=== PATIENT | female | born 2000 | race Hispanic/Latino ===

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

== ENCOUNTER 2023-08-15 13:09 | Emergency (ER) | payer MEDICAID, OTHER ==
[~2023-08-15] VITALS: Ht 154.9 cm; Wt 65.8 kg
[~2023-08-15 13:09] MED LIST changes: +FERR-82 PO; +PREN1TAB80 PO
[2023-08-15] MEDS: ONDANSETRON ODT 4MG TAB SL ONE (13:41)
[2023-08-15 13:44] LABS: HCG,QUALITATIVE URINE NEGATIVE (NEGATIVE)
[2023-08-15 13:45] LABS: ADD UA MICROSCOPIC YES
[2023-08-15 13:46] LABS: APPEARANCE,URINE CLOUDY (CLEAR); BACTERIA,URINE RARE /HPF (None Seen); BILIRUBIN,URINE NEGATIVE (NEGATIVE); COLOR,URINE YELLOW (YELLOW); GLUCOSE, URINE (UA) NEGATIVE (NEGATIVE); KETONES,URINE NEGATIVE (NEGATIVE); LEUKOCYTE ESTERASE ,URINE 250 Leu/uL (NEGATIVE); MUCUS,URINE MANY LPF (None Seen); NITRATE,URINE NEGATIVE (NEGATIVE); NON-SQUAMOUS EPITHELIAL CELL 2 /HPF (0-2); OCCULT BLOOD,URINE MODERATE (NEGATIVE); PH,URINE 8.5 (5.0-8.0); PROTEIN,URINE 70 mg/dL (NEGATIVE); RBC,URINE TNTC /HPF (0-1); SQUAMOUS EPITHELIAL CELL,UR MANY /HPF (0-2); UROBILINOGEN,URINE 6 mg/dL (0.2-1.0)
[2023-08-15 13:49] LABS: AMPHET/METH SCREEN,URINE NEGATIVE (NEGATIVE); BARBITURATE SCREEN, URINE NEGATIVE (NEGATIVE); BENZODIAZEPINES SCREEN,URINE NEGATIVE (NEGATIVE); CANNABINOID SCREEN,URINE POSITIVE (NEGATIVE); COCAINE SCREEN,URINE NEGATIVE (NEGATIVE); OPIATE SCREEN,URINE NEGATIVE (NEGATIVE); PHENCYCLIDINE SCREEN,URINE NEGATIVE (NEGATIVE)
[2023-08-15] MEDS ORDERED: ONDA4TAB10 PO (14:12)
[2023-08-15] MEDS ORDERED: NITR100C PO (14:12)
[2023-08-15 14:13] VITALS: BP 112/64; PULSE 84; RESP 18; O2SAT 99
== END 2023-08-15 14:36 | disposition home or self-care (01) ==
LOC: EDH 13:09
DX: F12.90 Cannabis use, unspecified, uncomplicated (principal); N30.01 Acute cystitis with hematuria; R11.0 Nausea; J45.909 Unspecified asthma, uncomplicated; Z79.1 Long term (current) use of non-steroidal anti-inflammatories (NSAID); Z20.822 Contact with and (suspected) exposure to COVID-19
CPT/HCPCS: 80305; 81001; 81025; 87088; 87426

== ENCOUNTER 2023-10-26 19:07 | Emergency (ER) | payer OTHER ==
[~2023-10-26] VITALS: Ht 147.3 cm; Wt 52.2 kg
[~2023-10-26 19:07] MED LIST changes: +NITR100C PO; +ONDA-243 PO
[2023-10-26 19:54] LABS: SARS-CoV-2, RNA, NAAT NEGATIVE SARS CoV-2 (NEGATIVE)
[2023-10-26 20:00] LABS: RAPID GROUP A STREP positive (NEGATIVE)
[2023-10-26 20:01] LABS: INFLUENZA TYPE A Negative For Type A (NEGATIVE); INFLUENZA TYPE B Negative For Type B (NEGATIVE)
[2023-10-26 20:08] VITALS: TEMP 103.6
[2023-10-26] MEDS: CEFTRIAXONE 1G VIAL IVPB ONE (20:08)
[2023-10-26] MEDS: ONDANSETRON ODT 4MG TAB SL ONE (20:08)
[2023-10-26] MEDS: 0.9%NACL 1000ML 1,000 ML IV ONE ×2 (20:08→22:29)
[2023-10-26] MEDS: ACETAMINOPHEN 500 MG TABLET PO ONE (20:08)
[2023-10-26 20:37] LABS: BASOPHILS # (AUTO) 0.07 K/uL (0.00-0.20); BASOPHILS % (AUTO) 0.4 % (0.0-5.0); EOSINOPHILS # (AUTO) 0.01 K/uL (0.00-0.70); EOSINOPHILS % (AUTO) 0.1 % (0.0-8.0); IMMATURE GRANULOCYTE ABSOLUTE 0.08 K/uL (0-1); LYMPHOCYTES # (AUTO) 1.3 K/uL (1.0-4.8); MEAN CORPUSCULAR HEMOGLOBIN 23.2 pg (27.0-33.0); MEAN CORPUSCULAR HGB CONC 31.5 g/dL (32.0-36.0); MEAN CORPUSCULAR VOLUME 73.6 fL (80-100); MONOCYTES # (AUTO) 0.7 K/uL (0.1-1.0); MONOCYTES % (AUTO) 3.6 % (3.0-13.0); NEUTROPHILS # (AUTO) 16.7 K/uL (1.8-7.7); NEUTROPHILS % (AUTO) 88.5 % (40.0-77.0); PLATELET COUNT (AUTO) 386 K/uL (130-400); RED BLOOD CELL COUNT(AUTO) 4.62 MIL/uL (4.00-5.50); RED CELL DISTRIBUTION WIDTH 16.1 % (11.0-15.5); WHITE BLOOD COUNT (AUTO) 18.8 K/uL (4.8-10.8)
[2023-10-26 20:40] LABS: APPEARANCE,URINE CLEAR (CLEAR); BILIRUBIN,URINE NEGATIVE (NEGATIVE); COLOR,URINE YELLOW (YELLOW); GLUCOSE, URINE (UA) NEGATIVE (NEGATIVE); KETONES,URINE NEGATIVE (NEGATIVE); LEUKOCYTE ESTERASE ,URINE TRACE Leu/uL (NEGATIVE); NITRATE,URINE NEGATIVE (NEGATIVE); OCCULT BLOOD,URINE NEGATIVE (NEGATIVE); PROTEIN,URINE NEGATIVE (NEGATIVE)
[2023-10-26 20:43] LABS: HCG,QUALITATIVE URINE NEGATIVE (NEGATIVE)
[2023-10-26 20:44] LABS: ADD UA MICROSCOPIC YES
[2023-10-26 20:53] LABS: BACTERIA,URINE RARE /HPF (None Seen); MUCUS,URINE RARE LPF (None Seen); SQUAMOUS EPITHELIAL CELL,UR FEW /HPF (0-2)
[2023-10-26 20:56] LABS: CREATININE 0.6 mg/dL (0.5-1.0); MAGNESIUM 1.7 mg/dL (1.80-2.40); POTASSIUM 3.3 mmol/L (3.5-5.1)
[2023-10-26] MEDS ORDERED: MAGNESIUM 2GM PREMIX 50ML 50 ML IV SCH (21:30)
[2023-10-26] MEDS ORDERED: CEPH500T PO (22:19)
[2023-10-26] MEDS ORDERED: ONDA-243 PO (22:19)
[2023-10-26] MEDS: KETOROLAC 15MG/ML VIAL (15MG/ML) IV ONE (22:28)
[2023-10-26] MEDS: POTASSIUM BICARB/CIT AC 25 MEQ TABLET.EFF PO ONE (22:29)
[2023-10-26 23:40] VITALS: BP 110/68; PULSE 88; RESP 16; O2SAT 97
== END 2023-10-26 23:45 | disposition home or self-care (01) ==
LOC: EDH 19:07
DX: N39.0 Urinary tract infection, site not specified (principal); J02.9 Acute pharyngitis, unspecified; R50.9 Fever, unspecified; E87.6 Hypokalemia; E83.42 Hypomagnesemia; Z20.822 Contact with and (suspected) exposure to COVID-19; Z79.899 Other long term (current) drug therapy; Z98.890 Other specified postprocedural states; Z88.0 Allergy status to penicillin
CPT/HCPCS: 99284; 96374; 71046; 87635; 96375; 83735; 80048; 85025; 87040 ×2; 87880; 87804 ×2; 83605; 81001; 81025; 36415; J7030 ×2; J0696; J1885

== ENCOUNTER 2024-12-15 11:46 | Emergency (ER) | payer OTHER ==
[~2024-12-15] VITALS: Ht 144.8 cm; Wt 68.0 kg
[~2024-12-15 11:46] MED LIST changes: +CEPH500T PO
--- NOTE | 2024-12-15 11:57 | ERN ---
ED Note History of Present Illness Stated Complaint: PELVIC PAIN Chief Complaint: Pelvic Pain Time Seen by MD: 11:49 Dictation: PATIENT IS A 24-YEAR-OLD FEMALE COMING IN COMPLAINTS OF PELVIC PAIN WITH VAGINAL BLEEDING ONSET FOR THE LAST THREE DAYS. NO FEVER NO CHILLS. SHE STATES SHE WAS SEEN AT [facility] IN ANOTHER AREA OF THE [facility], WAS TOLD SHE WAS HOWEVER SHE DOES NOT HAVE AN APPOINTMENT WITH HER MANAGER MED SURG DOCTOR UNTIL NEXT WEEK AT [facility]. Allergies: Coded Allergies: Penicillins (Verified Allergy, Unknown, ANAPHYLAXIS, 10/24/21) Home Meds Active Scripts Ondansetron (Ondansetron Odt) 4 Mg Tab.rapdis, 4 MG PO Q6HPRN PRN for nausea, #15 TAB 0 Refills Prov:PATRICIA BAPTISTE NP 10/26/23 Cephalexin (Cephalexin) 500 Mg Tablet, 500 MG PO BID for 7 Days, #14 TAB 0 Refills Prov:PATRICIA BAPTISTE NP 10/26/23 Ondansetron (Ondansetron Odt) 4 Mg Tab.rapdis, 4 MG PO Q6HPRN PRN for nausea, #16 TAB 0 Refills Prov:JIAN BONILLA EMAIL OPERATIONS MANAGER 08/15/23 Nitrofurantoin Macrocrystal (Nitrofurantoin) 100 Mg Capsule, 100 MG PO BID for 7 Days, #14 CAP Prov:JIAN BONILLA EMAIL OPERATIONS MANAGER 08/15/23 Meloxicam (Mobic) 7.5 Mg Tablet, 7.5 MG PO DAILY, #10 TAB 0 Refills Prov:NITIN SELF MD 12/24/20 Cyclobenzaprine HCl (Cyclobenzaprine HCl) 10 Mg Tablet, 10 MG PO TIDP, #20 TAB 0 Refills Prov:NITIN SELF MD 12/24/20 Reported Medications Ferrous Sulfate (Iron) 325 Mg Tablet, 325 MG PO QODAY, TAB 12/21/21 Vits W-Ca,Fe,FA(<1Mg) ( Vitamins) 1 Each Tablet, 1 EACH PO DAILY, TAB 12/21/21 Past Medical History Past Medical History: Other Additional Past Medical Hx: SLEEP APNEA Surgical History: None Social History: ETOH : 1 Para: 0 Aborts: 0 RN Note Reviewed/Agreed w/PFSH: Yes Review of System Dictation CONSTITUTIONAL: Negative except for HPI HEAD/FACE: Negative except for HPI EENT: Negative except for HPI RESPIRATORY: Negative except for HPI GASTROINTESTINAL/ABDOMINAL: Negative except for HPI pelvic pain GENITOURINARY: Negative except for HPI MUSCULOSKELETAL: Negative except for HPI INTEGUMENTARY: Negative except for HPI NEUROLOGICAL/PSYCH: Negative except for HPI HEMATOLOGIC/LYMPHATIC: Negative except for HPI All Systems Negative, Except as noted above. 13 point review of systems assessed and all negative except for above. Initial Vital Sign VS Vital Signs Date Time Temp Pulse Resp B/P (MAP) Pulse Ox O2 Delivery O2 Flow Rate FiO2 12/15/24 12:00 98.1 72 16 116/67 99 Room Air 0 12/15/24 12:03 21 Physical Exam Dictation Vital Signs reviewed General Appearance: Alert, oriented x 3, no acute distress, well developed, nourished. Denies pain or vaginal bleeding Head and Face: non-traumatic. Eyes: PERRL, pink conjunctivas, eyelid no trauma, anterior chamber with arcus senilis. Ears: Pinnas intact and no signs of trauma or erythema ear canals clear and no discharge TM no erythema Nose: No discharge, no bleeding. Oropharynx: Mouth normal, tongue pink, pharynx clear,no erythema, tonsils no exudates, no abscesses noted, mucous membrane moist Neck: Supple, non-tender, no thyromegaly, no masses, no JVD, no bruits Breast:Deferred Chest:No tenderness, no crepitus, no paradoxical movement, no retractions Lungs:Clear, well-ventilated, symmetric, no rales, no wheezing, no rhonchi, no stridor, good breath sounds bilaterally Heart: Regular rate, regular rhythm, no murmur, no gallops Vascular: no peripheral edema, Abdomen: Soft, positive bowel sounds, nondistended, no guarding, nontender, no rebound, no masses no hepatomegaly, no splenomegaly, no Beyer's sign, no hernias. Rectal: Deferred Genital: Deferred Neurological: Normal speech, motor function intact, sensory function intact Musculoskeletal: Neck nontender, full range of motion, back nontender, full range of motion, Extremities: nontender, full range of motion Skin: Color pink, dry, no turgor, no rash, no lacerations, no abrasions, no contusions. Lymphatic: Deferred Results (Laboratory/Radiology) Laboratory/Radiology Laboratory Tests Test 12/15/24 12:46 White Blood Count 10.4 K/uL (4.8-10.8) Red Blood Count 4.86 MIL/uL (4.00-5.50) Hemoglobin 13.0 g/dL (12.0-16.0) Hematocrit 39.4 % (36-48) Mean Corpuscular Volume 81.1 fL (79-99) Mean Corpuscular Hemoglobin 26.7 pg (27.0-33.0) L Mean Corpuscular Hemoglobin Concent 33.0 g/dL (32.0-36.0) Red Cell Distribution Width 13.7 % (11.0-15.5) Platelet Count 352 K/uL (130-400) Mean Platelet Volume 10.4 fL (7.5-10.5) Immature Granulocyte % (Auto) 0.3 % (0-1) Neutrophils (%) (Auto) 63.8 % (40.0-77.0) Lymphocytes (%) (Auto) 29.4 % (21.0-51.0) Monocytes (%) (Auto) 5.6 % (3.0-13.0) Eosinophils (%) (Auto) 0.3 % (0.0-8.0) Basophils (%) (Auto) 0.6 % (0.0-5.0) Neutrophils # (Auto) 6.7 K/uL (1.8-7.7) Lymphocytes # (Auto) 3.1 K/uL (1.0-4.8) Monocytes # (Auto) 0.6 K/uL (0.1-1.0) Eosinophils # (Auto) 0.03 K/uL (0.00-0.70) Basophils # (Auto) 0.06 K/uL (0.00-0.20) Absolute Immature Granulocyte (auto 0.03 K/uL (0-1) Nucleated Red Blood Cells 0.0 % (0.0-0.19) Sodium Level 141 mmol/L (136-145) Potassium Level 3.6 mmol/L (3.5-5.1) Chloride Level 103 mmol/L (101-111) Carbon Dioxide Level 30 mmol/L (21-32) Blood Urea Nitrogen 9 mg/dL (7-18) Creatinine 0.4 mg/dL (0.5-1.0) L Glomerular Filtration Rate Calc 143 mL/min (>90) Random Glucose 91 mg/dL (70-105) Total Calcium 8.9 mg/dL (8.5-10.1) Human Chorionic Gonadotropin, Quant 0 mIU/mL (0-5) : US Obstetrical, Complete <14 weeks CLINICAL HISTORY: APPROXIMATELY FOUR WEEKS . NO TECHNIQUE: Transabdominal imaging of the maternal pelvis and a <14 week gestation with image documentation. COMPARISON: None provided. FINDINGS: GESTATION: No intrauterine gestational sac or products of conception visualized UTERUS: Unremarkable, measuring approximately 7.2 x 3.7 x 5.6 cm. No myometrial mass. Endometrial thickness measures approximately 4 mm OVARIES: The right ovary measures approximately 3 x 2.3 x 2.1 cm with normal Doppler flow. Left ovary not visualized due to bowel gas. No evidence of any mass lesion in the bilateral adnexa. FREE FLUID: No free fluid.IMPRESSION: 1. No intrauterine identified. Recommend correlation with quantitative beta-hCG, and follow-up ultrasound imaging exam. 2. Normal-appearing uterus and right ovary. Left ovary not visualized due to bowel gas. /[facility] Reviewed?: Yes ED Course ED Course Orders Procedure Category Date Status Time Cbc With Differential LAB 12/15/24 Complete 11:53 Abo/Rh BBK 12/15/24 Complete 11:53 Hcg,Quantitative LAB 12/15/24 Complete 11:53 Us Ob <14 Weeks US 12/15/24 Resulted 11:53 Basic Metabolic Panel LAB 12/15/24 Complete 11:53 Urinalysis Profile LAB 12/15/24 In Process 14:18 Vital Signs Date Time Temp Pulse Resp B/P (MAP) Pulse Ox O2 Delivery O2 Flow Rate FiO2 12/15/24 14:50 98.1 70 16 120/67 99 Room Air* 0 12/15/24 12:03 98.1 72 16 116/67 99 Room Air* 0 12/15/24 12:00 98.1 72 16 116/67 99 Room Air 0 1455/discussed lab results and ultrasound with patient. She is aware that there is no . Medical Decision Making MDM MDM: Differential diagnosis: Pelvic /early /threatened a B/electrolyte imbalance/dehydration/pelvic pain Rationale: Tests considered and ordered secondary to shared decision making include: Labs/ultrasound Previous outside records reviewed: Old ER visits. Risk of complication and/or morbidity or mortality of patient management: None Medications-Per medication reconciliation Need for hospitalization: Patient does not meet criteria for hospitalization. None Need for emergency major/minor surgery: No There are no social concerns with this patient. Prescription drug management none Prescriptions will include symptomatic care Patient's prior external medical records from other ER visits were reviewed by me as indicated. Prior testing and results from previous visits were reviewed. Prior tests were taken into account with medical decision making and resource utilization, independent historian/historians were used to obtain complete medical history. I independently interpreted the test that were performed, results were reviewed by me and considered findings on radiology if ordered. Medical management and examination interpretation discussions were had by me with other qualified healthcare professionals as indicated for the patient's care. DX & DISP Disposition: Discharge Departure Impression: Primary Impression: Pelvic pain in female Condition: Stable Additional Instructions: Follow-up with primary care provider in 1 to 2 days. Take medications as directed here in the emergency room. Okay to continue home medications unless otherwise discussed during your visit in the emergency room today. Return to your nearest emergency room if symptoms worsen or if there is no improvement. Call 911 if you need immediate assistance. Take Tylenol or Motrin [id number] as needed and if no contraindications are present. Increase oral hydration. A wound culture or urine culture was ordered here in the emergency room department please follow-up with primary care provider and advise them to get repeat ports from our facility. If you had any Angelito wrap/splints that were applied here, please do not remove them until you see your primary care or specialty. Diet and activity as tolerated. Follow up with your primary care doctor as needed. Referrals: VERA NAGEL (PCP) Time of Disposition: 14:58 I have reviewed the case, and I agree with, Diagnosis and Plan JIAN BONILLA NP Dec 15, 2024 11:57
--- NOTE | 2024-12-15 12:49 | HMCIMG ---
EXAM: US Obstetrical, Complete <14 weeks CLINICAL HISTORY: APPROXIMATELY FOUR WEEKS . NO TECHNIQUE: Transabdominal imaging of the maternal pelvis and a <14 week gestation with image documentation. COMPARISON: None provided. FINDINGS: GESTATION: No intrauterine gestational sac or products of conception visualized UTERUS: Unremarkable, measuring approximately 7.2 x 3.7 x 5.6 cm. No myometrial mass. Endometrial thickness measures approximately 4 mm OVARIES: The right ovary measures approximately 3 x 2.3 x 2.1 cm with normal Doppler flow. Left ovary not visualized due to bowel gas. No evidence of any mass lesion in the bilateral adnexa. FREE FLUID: No free fluid.IMPRESSION: 1. No intrauterine identified. Recommend correlation with quantitative beta-hCG, and follow-up ultrasound imaging exam. 2. Normal-appearing uterus and right ovary. Left ovary not visualized due to bowel gas. /[place]
[2024-12-15 12:56] LABS: IMMATURE GRANULOCYTE ABSOLUTE 0.03 K/uL (0-1); NUCLEATED RED BLOOD CELLS 0.0 % (0.0-0.19); PLATELET COUNT (AUTO) 352 K/uL (130-400); RED BLOOD CELL COUNT(AUTO) 4.86 MIL/uL (4.00-5.50); RED CELL DISTRIBUTION WIDTH 13.7 % (11.0-15.5); WHITE BLOOD COUNT (AUTO) 10.4 K/uL (4.8-10.8)
[2024-12-15 13:07] LABS: CREATININE 0.4 mg/dL (0.5-1.0); GLOMERULAR FILTR. RATE CALC 143.0 mL/min (>90); GLUCOSE,RANDOM 91.0 mg/dL (70-105); SODIUM SERUM 141.0 mmol/L (136-145); UREA NITROGEN, BLOOD 9.0 mg/dL (7-18)
[2024-12-15 13:25] LABS: HCG,QUANTITATIVE 0.0 mIU/mL (0-5)
[2024-12-15 14:50] VITALS: BP 120/67; PULSE 70; RESP 16; TEMP 98; O2SAT 99
[2024-12-15 14:55] LABS: APPEARANCE,URINE CLEAR (CLEAR); GLUCOSE, URINE (UA) NEGATIVE (NEGATIVE); LEUKOCYTE ESTERASE ,URINE NEGATIVE Leu/uL (NEGATIVE); NITRATE,URINE NEGATIVE (NEGATIVE); OCCULT BLOOD,URINE NEGATIVE (NEGATIVE)
[2024-12-15 15:05] LABS: ADD UA MICROSCOPIC YES
[2024-12-15 15:11] LABS: SQUAMOUS EPITHELIAL CELL,UR FEW /HPF (0-2)
== END 2024-12-15 15:01 | disposition home or self-care (01) ==
LOC: EDH 11:46
DX: O26.891 Other specified pregnancy related conditions, first trimester (principal); R10.2 Pelvic and perineal pain; O99.351 Diseases of the nervous system complicating pregnancy, first trimester; G47.30 Sleep apnea, unspecified; Z3A.01 Less than 8 weeks gestation of pregnancy; Z79.1 Long term (current) use of non-steroidal anti-inflammatories (NSAID); Z88.0 Allergy status to penicillin
CPT/HCPCS: 36415; 76801; 80048; 81001; 84702; 85025; 86900; 86901; 99284